=== PATIENT | male | born 1950 | race Caucasian/White ===

== ENCOUNTER → 2018-10-23 | Outpatient (REF) ==
[~2018-10-23] MED LIST: BABY ASPIRIN81 MG PO; HYDROCHLOROT12.5 MG PO; MULTIVITAMIN OR; PNEUMOVAX 23 IM; PREVNAR 13 IM; VYTORIN 10/201 TAB PO; VYTORIN1 TA1 OR; ZOSTAVAX IM
[2018-10-23 12:06] LABS: CHOLESTEROL HDL RATIO 4.1 (<4.4 (CALC))
== END | disposition home or self-care (01) | DRG 951 ==
LOC: LAB 09:41
PROVIDERS: ATTEND Family Medicine
DX: Z02.6 Encounter for examination for insurance purposes (principal)

== ENCOUNTER 2019-10-17 | Day surgery (SDC) | payer OTHER | END 2019-10-17 13:45 | disposition home or self-care (01) | DRG 723 | PROC: 0VB03ZX Excision of Prostate, Percutaneous Approach, Diagnostic (ICD-10-PCS; principal; 2019-10-17) | DX: C61 Malignant neoplasm of prostate (principal); N13.8 Other obstructive and reflux uropathy; N40.1 Benign prostatic hyperplasia with lower urinary tract symptoms; I10 Essential (primary) hypertension; Z80.42 Family history of malignant neoplasm of prostate ==

== ENCOUNTER 2020-01-09 07:04 | Day surgery (SDC) | payer OTHER ==
[2020-01-09 10:17] VITALS: BP 113/65
== END 2020-01-09 09:58 | disposition home or self-care (01) | DRG 951 ==
LOC: ENDO 07:04
PROVIDERS: ATTEND Surgery
PROC: 0DBN8ZX Excision of Sigmoid Colon, Via Natural or Artificial Opening Endoscopic, Diagnostic (ICD-10-PCS; principal; 2020-01-09)
DX: Z12.11 Encounter for screening for malignant neoplasm of colon (principal); K63.5 Polyp of colon; K57.30 Diverticulosis of large intestine without perforation or abscess without bleeding; K64.8 Other hemorrhoids; Z11.59 Encounter for screening for other viral diseases